=== PATIENT | female | born 1995 | race Caucasian/White ===

== ENCOUNTER 2022-04-05 13:49 | Emergency (ER) | payer MEDICAID ==
[~2022-04-05] VITALS: Ht 149.9 cm; Wt 44.5 kg
--- NOTE | 2022-04-05 14:23 | NUR ---
covid and flu swab collected
[2022-04-05 14:26] VITALS: BP_SYST 100; BP_SYST 130
[2022-04-05] MEDS ORDERED: KETOROLAC TROMETHAMINE 30 MG VIAL IVP ONE (15:00)
[2022-04-05] MEDS ORDERED: DIPHENHYDRAMINE INJ 50 MG/ML VIAL IVP ONE (15:00)
[2022-04-05] MEDS ORDERED: ONDANSETRON HCL 4 MG/2 ML VIAL IVP ONE (15:00)
[2022-04-05] MEDS ORDERED: NACL 0.9% 1,000 ML IV ONE (15:00)
--- NOTE | 2022-04-05 15:00 | NUR ---
Pt complains of sore throat, fever chills, nausea vomiting episode for 2 days. No past medical history.
--- NOTE | 2022-04-05 15:22 | NUR ---
COVID + per Ender, lab primary RN and MD notified
[2022-04-05 16:15] LABS: HEMATOCRIT 42.7 % (36-48); HEMOGLOBIN 14.8 g/dL (12.0-16.0); MEAN CORPUSCULAR HEMOGLOBIN 34 pg (27-31); MEAN CORPUSCULAR HGB CONC 35 % (32-36); MEAN CORPUSCULAR VOLUME 97 fL (79.0-98.0); PLATELET COUNT (AUTO) 177 K/uL (130-430); RED BLOOD CELL COUNT(AUTO) 4.42 MIL/uL (4.2-6.2); RED CELL DISTRIBUTION WIDTH 12.7 % (9.0-15.0)
[2022-04-05 16:16] LABS: WHITE BLOOD COUNT (AUTO) 2.8 K/uL (4.8-10.8)
--- NOTE | 2022-04-05 16:21 | NUR ---
Patient to ER bed 8 to gown for evaluation. Side rails up.
--- NOTE | 2022-04-05 16:21 | NUR ---
# 20 gauge angiocath placed to right AC. Use of asceptic technique. Opsite placed over site. Blood return noted. Blood for lab drawn from site. Flushed with 10 cc of normal saline. No evidence of infiltration noted. Patient tolerated well.
[2022-04-05 16:22] LABS: ANION GAP 14 (5-15); CALCIUM 9.9 mg/dL (8.4-11.0); CHLORIDE 100 mmol/L (98-107); CREATININE 0.88 mg/dL (0.55-1.30); GLUCOSE 94 mg/dL (70-99); UREA NITROGEN, BLOOD 12 mg/dL (8-21)
[2022-04-05 16:24] LABS: GFR AFRICAN AMERICAN 98 mL/min (>90)
--- NOTE | 2022-04-05 16:30 | NUR ---
Medicated per MD orders. IVF infusing with no s/s of infiltration at this time. Will cont to monitor
[2022-04-05 16:31] LABS: ALANINE AMINOTRANSFERASE 10 U/L (12-78); ALBUMIN 4.8 g/dL (3.4-4.8); ASPARTATE AMINOTRANSFERASE 20 U/L (10-37); TOTAL BILIRUBIN 0.5 mg/dL (0.0-1.0)
[2022-04-05 16:43] LABS: BAND % (MANUAL) 3 % (0-6); BASOPHILS % (MANUAL) 0 % (0-2); EOSINOPHILS % (MANUAL) 0 % (0-7); LYMPHOCYTES % (MANUAL) 7 % (20-46); MONOCYTES % (MANUAL) 25 % (0-11)
[2022-04-05 19:20] VITALS: BP_SYST 130
--- NOTE | 2022-04-05 19:20 | NUR ---
Patient given written and verbal discharge instructions and verbalizes understanding. ER MD discussed with patient the results and treatment provided. Patient in stable condition. ID arm band removed. Patient educated on pain management and to follow up with PMD. Opportunity for questions provided and answered. Medication side effect fact sheet provided.
== END 2022-04-05 18:00 | disposition home or self-care (01) ==
LOC: SED 13:49
DX: U07.1 COVID-19 (principal); M79.10 Myalgia, unspecified site; R06.02 Shortness of breath; R11.10 Vomiting, unspecified; R19.7 Diarrhea, unspecified; Z79.899 Other long term (current) drug therapy
CPT/HCPCS: 99284; 96374; 96375; 96361; 87426; 85027; 80053; 85007; 84484; 36415; 87804 ×2; J1200; J1885; J2405; J7030